=== PATIENT | male | born 1980 | race Caucasian/White ===

== ENCOUNTER 2022-04-26 08:27 | Emergency (ER) | payer BC ==
[~2022-04-26] VITALS: Ht 177.8 cm; Wt 218.2 kg
[2022-04-26 08:38] VITALS: BP 125/86
[2022-04-26] MEDS ORDERED: TETanus/Pertussis (Acell)/Diphther VAC/PF (Tdap-Adult) 0.5ml syringe IMVAC ONE (09:30)
[2022-04-26] MEDS ORDERED: mupirocin 2% ointment 22GM TP ONE (09:30)
[2022-04-26] MEDS ORDERED: LIDOcaine/epinephrine/tetracaine TOPICAL sol 3 ML syringe TOP ONE (09:30)
[2022-04-26] MEDS ORDERED: CEPH-585 PO (10:25)
== END 2022-04-26 11:13 | disposition home or self-care (01) ==
LOC: ER 08:28
DX: S91.111A Laceration without foreign body of right great toe without damage to nail, initial encounter (principal); E10.42 Type 1 diabetes mellitus with diabetic polyneuropathy; Z79.1 Long term (current) use of non-steroidal anti-inflammatories (NSAID); X58.XXXA Exposure to other specified factors, initial encounter; Y93.89 Activity, other specified; Y92.89 Other specified places as the place of occurrence of the external cause; Y99.8 Other external cause status
CPT/HCPCS: 73660; 90471; 90715; 99283; J3490; J7030; L4360

== ENCOUNTER 2022-05-12 13:34 | Inpatient (IN) | payer BC ==
[~2022-05-12] VITALS: Ht 177.8 cm; Wt 84.1 kg
[~2022-05-12 13:34] MED LIST: CEPH-585 PO; HYDR28CR14 TOP; INSU100I8; INSU100V9 SQ; ONDA8TAB9 PO; POTA-82 PO
[2022-05-12] MEDS ORDERED: aspirin 81mg tab.chew PO ONE (13:50)
[2022-05-12 14:04] LABS: BASOPHILS % (AUTO) 0.6 % (0-1); EOSINOPHILS # (AUTO) 0.1 X10'3 (0-0.9); HEMATOCRIT 40.1 % (42.0-52.0); HEMOGLOBIN 13.5 g/dl (14.0-17.9); LYMPHOCYTES # (AUTO) 1.7 X10'3 (1.1-4.8); LYMPHOCYTES % (AUTO) 21.6 % (21-51); MEAN CORPUSCULAR HEMOGLOBIN 30.2 PG (27.0-31.0); MEAN CORPUSCULAR HGB CONC 33.7 g/dL (33.0-36.5); MEAN CORPUSCULAR VOLUME 89.6 FL (78-98); MEAN PLATELET VOLUME 7.7 FL (7.4-10.4); MONOCYTES # (AUTO) 0.5 X10'3 (0-0.9); MONOCYTES % (AUTO) 6.1 % (2-12); NEUTROPHILS # (AUTO) 5.4 X10'3 (1.8-7.7); NEUTROPHILS % (AUTO) 70.7 % (42-75); PLATELET COUNT 269 X10'3 (140-440); RED BLOOD COUNT 4.48 X10'6 (4.70-6.10); RED CELL DISTRIBUTION WIDTH 13.2 % (11.5-14.5); WHITE BLOOD COUNT 7.6 X10'3 (4.5-11.0)
[2022-05-12 14:19] LABS: ALANINE AMINOTRANSFERASE 62 U/L (12-78); ALBUMIN 3.8 G/DL (3.4-5.0); ALKALINE PHOSPHATASE 118 IU/L (46-116); ANION GAP 7 (8-16); ASPARTATE AMINO TRANSFERASE 17 U/L (10-37); BILIRUBIN,TOTAL 0.3 MG/DL (0.1-1.0); BLOOD UREA NITROGEN 15 MG/DL (7-18); BUN/CREATININE RATIO 16.1 (5.4-32.0); CALCIUM 9.3 MG/DL (8.5-10.1); CHLORIDE 98 MMOL/L (99-107); CREATININE 0.93 MG/DL (0.60-1.10); GLUCOSE 438 MG/DL (70-104); POTASSIUM 4.2 MMOL/L (3.5-5.1); SODIUM 134 MMOL/L (135-145); TOTAL CARBON DIOXIDE 28.8 MMOL/L (24-32); TOTAL PROTEIN 7.6 G/DL (6.4-8.2); eGFR 89 ML/MIN
[2022-05-12] MEDS ORDERED: heparin 10,000 units/1 ML INJ IV ONE ×2 (15:10→15:20)
[2022-05-12] MEDS ORDERED: heparin 10,000 units/1 ML INJ IV PRN (15:10)
[2022-05-12] MEDS: heparin 25,000 UNIT/250ml bag 250 ML IV SCH ×2 (15:40→22:12)
[2022-05-12] MEDS ORDERED: MESSAGE TO PHARMACY PO ONE (16:20)
[2022-05-12] MEDS ORDERED: dextrose 50%-water 50ml dispensing syringe IV PRN ×2 (16:20)
[2022-05-12] MEDS ORDERED: nitroGLYCERIN 0.4mg SUBLingual tab SL PRN (16:20)
[2022-05-12] MEDS ORDERED: ondansetron/PF 4mg/2ml inj IV PRN (16:20)
[2022-05-12] MEDS ORDERED: acetaminophen 325mg tablet PO PRN ×2 (16:20)
[2022-05-12] MEDS ORDERED: mag hydrox/Alum hydrox/simeth 30ml oral suspension PO PRN (16:20)
[2022-05-12] MEDS ORDERED: glucagon, human recombinant 1mg kit SUBCUT PRN (16:20)
[2022-05-12] MEDS ORDERED: magnesium hydroxide 30ml (MOM) UD suspension PO PRN (16:20)
[2022-05-12] MEDS ORDERED: morphine 2 MG/ML inj. syringe IV PRN ×2 (16:20)
[2022-05-12] MEDS ORDERED: DEXTROSE 15 GM of carb/4 tabs (each vial/BOTTLE has 4 tablets) PO PRN ×2 (16:20)
[2022-05-12 16:28] LABS: APTT 30 SECONDS (22-32)
--- NOTE | 2022-05-12 16:33 | NUR ---
PAGED DR ESCOBAR TO INFORM THE CRITICAL TROP 162 AND ALSO TO RENEW THE HEPARIN ORDER.
[2022-05-12 17:01] LABS: HEMOGLOBIN A1C 11.5 % (4.5-6.2)
[2022-05-12 17:53] LABS: D-DIMER < 0.19 MG/L FEU (0-0.50)
--- NOTE | 2022-05-12 18:30 | NUR ---
SBAR TO PRIMARY RN ERICK TO PAGE THE HOSPITALIST AGAIN TO RENEW THE ORDERS FOR HEPARIN DRIP .
--- NOTE | 2022-05-12 18:48 | NUR ---
PAGER ID: [phone] MESSAGE: Renato Kapadia, in ER 4 needs cardiac heparin orders to continue from the ED heparin orders. Divya HARMON [id number]
[2022-05-12] MEDS: insulin Lispro (HumaLOG) vial - multi-dose SQ SCH (19:05)
[2022-05-12] MEDS: docusate sod 100mg capsule PO SCH (20:00)
[2022-05-12] MEDS ORDERED: INSU100I8 SQ (20:09)
[2022-05-12] MEDS ORDERED: ROSU10TA28 PO (20:09)
[2022-05-12] MEDS ORDERED: LANTUS SQ (20:09)
[2022-05-12] MEDS: insulin glargine (Lantus) pen - multi-dose SQ SCH (21:00)
[2022-05-12 21:32] LABS: APTT 58 SECONDS (22-32)
[2022-05-13] VITALS (12 sets, daily range): BP systolic 112–157; BP diastolic 62–96
--- NOTE | 2022-05-13 07:00 | NUR ---
PREVIOUS BLUE TOP PTT LAB WASNT CLOTTING PER LAB AND REDRAW NEEDED. PAUSED HEPARIN DRIP AND WILL REDRAW IN 30 MIN
[2022-05-13] MEDS: docusate sod 100mg capsule PO SCH ×2 (08:00→19:42)
[2022-05-13 08:07] LABS: BASOPHILS % (AUTO) 0.8 % (0-1); EOSINOPHILS # (AUTO) 0.1 X10'3 (0-0.9); EOSINOPHILS % (AUTO) 1.9 % (0-6); HEMATOCRIT 41.1 % (42.0-52.0); HEMOGLOBIN 13.6 g/dl (14.0-17.9); LYMPHOCYTES # (AUTO) 1.8 X10'3 (1.1-4.8); MEAN CORPUSCULAR HEMOGLOBIN 29.5 PG (27.0-31.0); MEAN CORPUSCULAR HGB CONC 33.1 g/dL (33.0-36.5); MEAN CORPUSCULAR VOLUME 89.2 FL (78-98); MEAN PLATELET VOLUME 7.7 FL (7.4-10.4); MONOCYTES # (AUTO) 0.4 X10'3 (0-0.9); MONOCYTES % (AUTO) 9.3 % (2-12); NEUTROPHILS # (AUTO) 2.3 X10'3 (1.8-7.7); PLATELET COUNT 272 X10'3 (140-440); RED BLOOD COUNT 4.61 X10'6 (4.70-6.10); RED CELL DISTRIBUTION WIDTH 13.1 % (11.5-14.5); WHITE BLOOD COUNT 4.7 X10'3 (4.5-11.0)
[2022-05-13 08:08] LABS: ALBUMIN 3.1 G/DL (3.4-5.0); ANION GAP 7 (8-16); BLOOD UREA NITROGEN 11 MG/DL (7-18); BUN/CREATININE RATIO 14.7 (5.4-32.0); CALCIUM 8.6 MG/DL (8.5-10.1); CHLORIDE 104 MMOL/L (99-107); CREATININE 0.75 MG/DL (0.60-1.10); GLUCOSE 136 MG/DL (70-104); POTASSIUM 3.4 MMOL/L (3.5-5.1); SODIUM 140 MMOL/L (135-145); TOTAL CARBON DIOXIDE 29.2 MMOL/L (24-32); eGFR > 90 ML/MIN
[2022-05-13] MEDS: aspirin 81mg, enteric-coated 1 TAB TABLET.DR PO SCH (08:18)
[2022-05-13 11:01] LABS: CHOLESTEROL 277 MG/DL (0-200); HDL CHOLESTEROL 70 MG/DL (35-60); LDL CHOLESTEROL 174 MG/DL (50-100); TRIGLYCERIDES 106 MG/DL (20-135)
--- NOTE | 2022-05-13 11:06 | NUR ---
Diabetes consult: Pt w/ hx of T1DM A1c 11.5 per EMR. Pt declined verbal ed at this time, stating he just needs to figure his insulin out (on insulin pump), though accepted written DM ed w/ RD contact info. Addendum: 05/13/22 at [address] Amended: Links added.
[2022-05-13] MEDS ORDERED: nitroGLYCERIN-Tridil 50MG/D5W 250 ML IV ONE (11:52)
[2022-05-13] MEDS ORDERED: verapamil 2.5 mg/ml inj IV ONE (11:52)
[2022-05-13] MEDS ORDERED: LIDOcaine 1% 30ml preserv. free vial ONE (11:53)
[2022-05-13] MEDS ORDERED: midazolam 1 mg/ML 2ml injection ONE (11:53)
[2022-05-13] MEDS ORDERED: fentaNYL/PF 50MCG/1 ML 2ML syringe ONE (11:53)
[2022-05-13] MEDS ORDERED: iohexol 350MG/ML 100ml bottle IV ONE ×3 (11:53→14:24)
--- NOTE | 2022-05-13 13:05 | NUR ---
pt is having an angio today. Has been consented and prepped. laboratory assistant to retrieve pt between 1300 and 1330. Will continue to monitor and keep npo.
[2022-05-13] MEDS ORDERED: ticagrelor 90mg tablet ONE (14:37)
[2022-05-13] MEDS ORDERED: heparin 25,000 UNIT/250ml bag 250 ML IV ONE (14:44)
[2022-05-13] MEDS ORDERED: HYDROcodone/acetaminophen 10/325mg tab PO PRN (15:20)
[2022-05-13] MEDS: HYDROcodone/acetaminophen 5mg/325mg tablet PO PRN (15:45)
[2022-05-13] MEDS: normal saline 1000ml 1,000 ML IV SCH (16:15)
[2022-05-13] MEDS: ticagrelor 90mg tablet PO SCH (19:32)
--- NOTE | 2022-05-13 20:21 | NUR ---
Assumed care of this patient from FAUSTINO Ramos at change of shift 1800. Vascular device in place on right radial, with 3ml pressure released Q 15 min. released completely at aprox. 1845. No signs of bleeding. covered with gauze and clear Tegaderm to continue to monitor. Vitals stable, A&O x $ eating dinner. Care to be assumed by FAUSTINO Younger.
[2022-05-13] MEDS: insulin Lispro (HumaLOG) vial - multi-dose SQ SCH (21:41)
[2022-05-13] MEDS: insulin glargine (Lantus) pen - multi-dose SQ SCH (21:44)
[2022-05-14] VITALS (11 sets, daily range): BP systolic 96–150; BP diastolic 54–87
[2022-05-14] MEDS: normal saline 1000ml 1,000 ML IV SCH ×3 (00:58→18:59)
--- NOTE | 2022-05-14 06:21 | NUR ---
Problems reprioritized. Patient report given, questions answered & plan of care reviewed with SAL. Addendum: 05/14/22 at 0622 by Mark Nagel RN Amended: Links added.
[2022-05-14 07:40] LABS: BASOPHILS % (AUTO) 0.7 % (0-1); EOSINOPHILS # (AUTO) 0.1 X10'3 (0-0.9); EOSINOPHILS % (AUTO) 1.5 % (0-6); HEMOGLOBIN 12.3 g/dl (14.0-17.9); LYMPHOCYTES # (AUTO) 1.7 X10'3 (1.1-4.8); LYMPHOCYTES % (AUTO) 39.8 % (21-51); MEAN CORPUSCULAR HEMOGLOBIN 30.5 PG (27.0-31.0); MEAN CORPUSCULAR HGB CONC 34.1 g/dL (33.0-36.5); MEAN CORPUSCULAR VOLUME 89.3 FL (78-98); MEAN PLATELET VOLUME 7.9 FL (7.4-10.4); MONOCYTES # (AUTO) 0.3 X10'3 (0-0.9); MONOCYTES % (AUTO) 8.3 % (2-12); NEUTROPHILS # (AUTO) 2.1 X10'3 (1.8-7.7); NEUTROPHILS % (AUTO) 49.7 % (42-75); PLATELET COUNT 258 X10'3 (140-440); RED BLOOD COUNT 4.03 X10'6 (4.70-6.10); RED CELL DISTRIBUTION WIDTH 12.9 % (11.5-14.5); WHITE BLOOD COUNT 4.2 X10'3 (4.5-11.0)
[2022-05-14] MEDS ORDERED: aspirin 81mg, enteric-coated 1 TAB TABLET.DR PO SCH (08:00)
[2022-05-14] MEDS ORDERED: atorvastatin 20mg tablet PO SCH (08:00)
[2022-05-14 08:05] LABS: ALBUMIN 2.8 G/DL (3.4-5.0); ANION GAP 7 (8-16); BLOOD UREA NITROGEN 14 MG/DL (7-18); BUN/CREATININE RATIO 17.9 (5.4-32.0); CALCIUM 8.1 MG/DL (8.5-10.1); CHLORIDE 106 MMOL/L (99-107); CHOL/HDL RATIO 3.9 (0.00-4.99); CHOLESTEROL 235 MG/DL (0-200); CREATININE 0.78 MG/DL (0.60-1.10); GLUCOSE 194 MG/DL (70-104); HDL CHOLESTEROL 60 MG/DL (35-60); LDL CHOLESTEROL 146 MG/DL (50-100); POTASSIUM 3.7 MMOL/L (3.5-5.1); SODIUM 139 MMOL/L (135-145); TRIGLYCERIDES 142 MG/DL (20-135); eGFR > 90 ML/MIN
[2022-05-14] MEDS: insulin Lispro (HumaLOG) vial - multi-dose SQ SCH ×2 (08:07→21:50)
[2022-05-14] MEDS: ticagrelor 90mg tablet PO SCH ×2 (08:09→21:28)
[2022-05-14] MEDS: docusate sod 100mg capsule PO SCH ×2 (08:09→20:00)
[2022-05-14] MEDS: atorvastatin 20mg tablet PO SCH (08:09)
[2022-05-14] MEDS: aspirin 81mg, enteric-coated 1 TAB TABLET.DR PO SCH (08:09)
[2022-05-14] MEDS: HYDROcodone/acetaminophen 5mg/325mg tablet PO PRN ×2 (08:21→14:20)
--- NOTE | 2022-05-14 10:20 | NUR ---
Page to respiratory [id number] Darryl. Pt needs to go down to CT today at some point please call Paige @[phone]
[2022-05-14] MEDS ORDERED: nitroGLYCERIN-Tridil 50MG/D5W 250 ML IV ONE (11:42)
[2022-05-14] MEDS ORDERED: fentaNYL/PF 50MCG/1 ML 2ML syringe ONE (11:42)
[2022-05-14] MEDS ORDERED: LIDOcaine 1% (10mg/ml) 2ml vial ONE (11:42)
[2022-05-14] MEDS ORDERED: iohexol 350MG/ML 100ml bottle IV ONE ×2 (11:42→12:36)
[2022-05-14] MEDS ORDERED: midazolam 1 mg/ML 2ml injection ONE (11:42)
[2022-05-14] MEDS ORDERED: heparin 1,000unit/ml 10ml vial 10 ML ONE (11:42)
[2022-05-14] MEDS ORDERED: verapamil 2.5 mg/ml inj IV ONE (11:42)
[2022-05-14] MEDS ORDERED: heparin 1,000 UNITS/NS 500ml 500 ML ONE (11:43)
[2022-05-14] MEDS ORDERED: ticagrelor 90mg tablet ONE (13:18)
--- NOTE | 2022-05-14 13:44 | NUR ---
page to JOHN [id number] Kang back from ammunition assembly laborer Dr. Upton would like EKG. [phone]
[2022-05-14] MEDS ORDERED: ticagrelor 90mg tablet PO STA (13:52)
--- NOTE | 2022-05-14 13:55 | NUR ---
RX, stent cards ,brillinta coupon handed to patient so they are not forgotten on DC.
--- NOTE | 2022-05-14 16:05 | NUR ---
sensation and distal pulses intact post cath on right side. Hand is warm, radial pulse palpable, sensation intact no hematoma at site , no leaking
--- NOTE | 2022-05-14 17:34 | NUR ---
cath site no air in band, no blood leaking, light bruising , no hematoma, sensation intact , pulses bilateral radial and pedal palpable no complications noted at this time
--- NOTE | 2022-05-14 18:16 | NUR ---
Problems reprioritized. Patient report given, questions answered & plan of care reviewed with Charles HARMON. Patient resting in bed in no acute distress.
[2022-05-14] MEDS: insulin glargine (Lantus) pen - multi-dose SQ SCH (21:37)
[2022-05-15] MEDS: normal saline 1000ml 1,000 ML IV SCH ×2 (01:39→08:19)
[2022-05-15 02:00] VITALS: BP 113/77
[2022-05-15 06:53] LABS: BASOPHILS % (AUTO) 0.7 % (0-1); EOSINOPHILS # (AUTO) 0.1 X10'3 (0-0.9); EOSINOPHILS % (AUTO) 1.3 % (0-6); HEMATOCRIT 36.3 % (42.0-52.0); HEMOGLOBIN 12.3 g/dl (14.0-17.9); LYMPHOCYTES # (AUTO) 1.2 X10'3 (1.1-4.8); LYMPHOCYTES % (AUTO) 25.5 % (21-51); MEAN CORPUSCULAR HEMOGLOBIN 30.2 PG (27.0-31.0); MEAN CORPUSCULAR HGB CONC 33.8 g/dL (33.0-36.5); MEAN CORPUSCULAR VOLUME 89.3 FL (78-98); MEAN PLATELET VOLUME 7.7 FL (7.4-10.4); MONOCYTES # (AUTO) 0.5 X10'3 (0-0.9); NEUTROPHILS # (AUTO) 2.9 X10'3 (1.8-7.7); NEUTROPHILS % (AUTO) 62.5 % (42-75); PLATELET COUNT 251 X10'3 (140-440); RED BLOOD COUNT 4.06 X10'6 (4.70-6.10); RED CELL DISTRIBUTION WIDTH 12.9 % (11.5-14.5); WHITE BLOOD COUNT 4.7 X10'3 (4.5-11.0)
--- NOTE | 2022-05-15 06:57 | NUR ---
Patient in room PCU 3011. I have received report from FAUSTINO Soto and had the opportunity to ask questions and assume patient care.
[2022-05-15 07:05] VITALS: BP 106/63
[2022-05-15 07:12] LABS: ALBUMIN 2.9 G/DL (3.4-5.0); ANION GAP 7 (8-16); BLOOD UREA NITROGEN 10 MG/DL (7-18); BUN/CREATININE RATIO 13.7 (5.4-32.0); CALCIUM 8.5 MG/DL (8.5-10.1); CHLORIDE 105 MMOL/L (99-107); CREATININE 0.73 MG/DL (0.60-1.10); GLUCOSE 156 MG/DL (70-104); POTASSIUM 3.8 MMOL/L (3.5-5.1); SODIUM 140 MMOL/L (135-145); TOTAL CARBON DIOXIDE 27.8 MMOL/L (24-32); eGFR > 90 ML/MIN
[2022-05-15] MEDS: atorvastatin 20mg tablet PO SCH (07:53)
[2022-05-15] MEDS: ticagrelor 90mg tablet PO SCH (07:53)
[2022-05-15] MEDS: aspirin 81mg, enteric-coated 1 TAB TABLET.DR PO SCH (07:53)
[2022-05-15] MEDS: docusate sod 100mg capsule PO SCH (07:56)
[2022-05-15] MEDS: insulin Lispro (HumaLOG) vial - multi-dose SQ SCH (09:39)
[2022-05-15] MEDS ORDERED: ASPI-1071 PO (10:15)
[2022-05-15] MEDS ORDERED: ATOR20TA66 PO ×2 (10:15)
[2022-05-15] MEDS ORDERED: CARV3.12 PO ×2 (10:15)
[2022-05-15] MEDS ORDERED: TICA90TA PO (10:15)
[2022-05-15 11:34] VITALS: BP 130/86
[2022-05-15] MEDS ORDERED: METO-539 PO (12:24)
[2022-05-15] MEDS ORDERED: ROSU40TA PO (12:24)
[2022-05-15] MEDS ORDERED: LISI10TA27 PO (12:24)
--- NOTE | 2022-05-15 12:26 | NUR ---
Patient alert and oriented in no apparent acute distress. Spouse at bedside and brought in Brilinta that was picked up from Pharmacy. Discussed with patient discharge instruction and new prescriptions. Both patient and spouse verbalized understanding of teaching. Patient preferred to ambulate with spouse for dc. Patient dc'd with all personal belongings.
== END 2022-05-15 12:39 | disposition home or self-care (01) | DRG 247 ==
LOC: ER 13:35 → ED HOLD 16:21 → OBSVTOIN 16:21 → EDBEDREQ 05-13 01:24 → PCU 3S 05-13 10:30
PROVIDERS: ADMIT Internal Medicine; ATTEND Internal Medicine
PROC: 4A023N7 Measurement of Cardiac Sampling and Pressure, Left Heart, Percutaneous Approach (ICD-10-PCS; principal; 2022-05-13)
PROC: 027034Z Dilation of Coronary Artery, One Artery with Drug-eluting Intraluminal Device, Percutaneous Approach (ICD-10-PCS; 2022-05-13)
PROC: B2111ZZ Fluoroscopy of Multiple Coronary Arteries using Low Osmolar Contrast (ICD-10-PCS; 2022-05-13)
PROC: B2151ZZ Fluoroscopy of Left Heart using Low Osmolar Contrast (ICD-10-PCS; 2022-05-13)
PROC: 027135Z Dilation of Coronary Artery, Two Arteries with Two Drug-eluting Intraluminal Devices, Percutaneous Approach (ICD-10-PCS; 2022-05-14)
PROC: 4A023N7 Measurement of Cardiac Sampling and Pressure, Left Heart, Percutaneous Approach (ICD-10-PCS; 2022-05-14)
PROC: B2111ZZ Fluoroscopy of Multiple Coronary Arteries using Low Osmolar Contrast (ICD-10-PCS; 2022-05-14)
PROC: B2151ZZ Fluoroscopy of Left Heart using Low Osmolar Contrast (ICD-10-PCS; 2022-05-14)
DX: I21.4 Non-ST elevation (NSTEMI) myocardial infarction (principal); E10.65 Type 1 diabetes mellitus with hyperglycemia; I10 Essential (primary) hypertension; Z96.41 Presence of insulin pump (external) (internal); E78.5 Hyperlipidemia, unspecified; Z79.4 Long term (current) use of insulin; Z83.3 Family history of diabetes mellitus; Z82.49 Family history of ischemic heart disease and other diseases of the circulatory system; Z79.899 Other long term (current) drug therapy
CPT/HCPCS: 93452; 93458; 99285; C9600; 36415; 71045; 76937; 80048; 80053; 80061; 82948; 83036; 83880; 84484; 85025; 85347; 85379; 85610; 85730; 93005; 99152; 99153; A4620; A5120; A6258; C1725; C1751; C1769; C1874; C1894; G0378; J1644; J1815; J2250; J3010; J3490; J7030; Q9967

== ENCOUNTER 2022-05-28 12:43 | Outpatient (CLI) | payer BC ==
[~2022-05-28 12:43] MED LIST changes: +ASPI-1071 PO; -CEPH-585 PO; -HYDR28CR14 TOP; -INSU100I8; +INSU100I8 SQ; -INSU100V9 SQ; +LANTUS SQ; +LISI10TA27 PO; +METO-539 PO; -ONDA8TAB9 PO; -POTA-82 PO; +ROSU40TA PO; +TICA90TA PO
== END 2022-05-28 23:59 | disposition home or self-care (01) ==
LOC: VAS 12:43
PROVIDERS: ATTEND Internal Medicine Cardiovascular Disease
DX: I65.23 Occlusion and stenosis of bilateral carotid arteries (principal); I25.10 Atherosclerotic heart disease of native coronary artery without angina pectoris; R42 Dizziness and giddiness
CPT/HCPCS: 93880; 93925

== ENCOUNTER 2022-07-27 13:02 | Emergency (ER) | payer BC ==
[~2022-07-27] VITALS: Ht 177.8 cm; Wt 84.0 kg
[~2022-07-27 13:02] MED LIST changes: +BENZ-38 PO; +GUAI120L55 PO; -METO-539 PO
[2022-07-27 13:13] VITALS: BP 111/78
[2022-07-27] MEDS ORDERED: AMOX-117 PO (13:54)
[2022-07-27] MEDS ORDERED: DOXY100C76 PO (13:54)
== END 2022-07-27 14:06 | disposition home or self-care (01) ==
LOC: ER 13:02
DX: E10.65 Type 1 diabetes mellitus with hyperglycemia (principal); J20.9 Acute bronchitis, unspecified; R05.9 Cough, unspecified
CPT/HCPCS: 71045; 99283

== ENCOUNTER 2022-09-13 07:59 | Observation (INO) | payer BC ==
[~2022-09-13] VITALS: Ht 177.8 cm; Wt 76.2 kg
[~2022-09-13 07:59] MED LIST changes: -BENZ-38 PO
[2022-09-13 08:35] LABS: BASOPHILS % (AUTO) 0.8 % (0-1); EOSINOPHILS # (AUTO) 0.1 X10'3 (0-0.9); EOSINOPHILS % (AUTO) 1.1 % (0-6); HEMATOCRIT 38.7 % (42.0-52.0); HEMOGLOBIN 12.9 g/dl (14.0-17.9); LYMPHOCYTES # (AUTO) 1.9 X10'3 (1.1-4.8); LYMPHOCYTES % (AUTO) 39.5 % (21-51); MEAN CORPUSCULAR HEMOGLOBIN 29.9 PG (27.0-31.0); MEAN CORPUSCULAR HGB CONC 33.5 g/dL (33.0-36.5); MEAN CORPUSCULAR VOLUME 89.4 FL (78-98); MEAN PLATELET VOLUME 7.6 FL (7.4-10.4); MONOCYTES # (AUTO) 0.5 X10'3 (0-0.9); MONOCYTES % (AUTO) 9.6 % (2-12); NEUTROPHILS # (AUTO) 2.3 X10'3 (1.8-7.7); PLATELET COUNT 375 X10'3 (140-440); RED BLOOD COUNT 4.32 X10'6 (4.70-6.10); RED CELL DISTRIBUTION WIDTH 13.7 % (11.5-14.5); WHITE BLOOD COUNT 4.7 X10'3 (4.5-11.0)
[2022-09-13 08:50] LABS: ALANINE AMINOTRANSFERASE 101 U/L (12-78); ALBUMIN/GLOBULIN RATIO 1.1 (1.1-1.5); ALKALINE PHOSPHATASE 136 IU/L (46-116); ANION GAP 5 (8-16); ASPARTATE AMINO TRANSFERASE 64 U/L (10-37); BILIRUBIN,TOTAL 0.4 MG/DL (0.1-1.0); BLOOD UREA NITROGEN 23 MG/DL (7-18); BUN/CREATININE RATIO 20.4 (5.4-32.0); CALCIUM 9.5 MG/DL (8.5-10.1); CHLORIDE 96 MMOL/L (99-107); CREATININE 1.13 MG/DL (0.60-1.10); GLUCOSE 312 MG/DL (70-104); POTASSIUM 5.3 MMOL/L (3.5-5.1); SODIUM 132 MMOL/L (135-145); TOTAL CARBON DIOXIDE 31.5 MMOL/L (24-32); TOTAL PROTEIN 7.8 G/DL (6.4-8.2); eGFR 71 ML/MIN
[2022-09-13 08:58] LABS: MAGNESIUM 2.2 MG/DL (1.5-2.4)
[2022-09-13] MEDS ORDERED: normal saline 1000ML IV soln IVB ONE (09:10)
[2022-09-13] MEDS: normal saline 1000ml 1,000 ML IV SCH ×2 (12:25→22:40)
[2022-09-13] MEDS ORDERED: mag hydrox/Alum hydrox/simeth 30ml oral suspension PO PRN (12:25)
[2022-09-13] MEDS ORDERED: regadenoson 0.4mg/5ml syringe IV PRN (12:25)
[2022-09-13] MEDS ORDERED: aminophylline 250mg/10ml inj. IV PRN (12:25)
[2022-09-13] MEDS ORDERED: metoprolol tartrate 1mg/ml inj IV PRN (12:25)
[2022-09-13] MEDS ORDERED: acetaminophen 325mg tablet PO PRN (12:25)
[2022-09-13] MEDS ORDERED: magnesium hydroxide 30ml (MOM) UD suspension PO PRN (12:25)
[2022-09-13] MEDS ORDERED: ondansetron/PF 4mg/2ml inj IV PRN (12:25)
[2022-09-13] MEDS ORDERED: nitroGLYCERIN 0.4mg SUBLingual tab SL PRN (12:25)
[2022-09-13] MEDS ORDERED: LISI10TA27 PO (13:57)
[2022-09-13] MEDS ORDERED: TICA90TA2 PO (13:57)
[2022-09-13] MEDS ORDERED: ASPI81TA52 PO (13:57)
[2022-09-13] MEDS ORDERED: METO-395 PO (13:57)
[2022-09-13] MEDS ORDERED: MULT-1085 PO (13:57)
[2022-09-13] MEDS ORDERED: ROSU40TA22 PO (13:57)
[2022-09-13] MEDS ORDERED: dextrose 50%-water 50ml dispensing syringe IV PRN ×2 (17:50)
[2022-09-13] MEDS ORDERED: glucagon, human recombinant 1mg kit SUBCUT PRN (17:50)
[2022-09-13] MEDS ORDERED: insulin Lispro (HumaLOG) vial - multi-dose SQ SCH (17:50)
[2022-09-13] MEDS ORDERED: DEXTROSE 15 GM of carb/4 tabs (each vial/BOTTLE has 4 tablets) PO PRN ×2 (17:50)
[2022-09-13] MEDS ORDERED: MESSAGE TO PHARMACY PO ONE (17:50)
[2022-09-13 18:09] LABS: HEMOGLOBIN A1C 11.2 % (4.5-6.2)
[2022-09-13] MEDS: docusate sod 100mg capsule PO SCH (20:00)
[2022-09-13] MEDS ORDERED: metoprolol succinate 25mg (24-HOUR) SR. Tablet PO SCH (21:00)
[2022-09-13] MEDS ORDERED: insulin glargine (Lantus) pen - multi-dose SQ SCH (21:00)
[2022-09-13] MEDS ORDERED: atorvastatin 20mg tablet PO SCH (21:00)
[2022-09-13] MEDS: ticagrelor 90mg tablet PO SCH (21:05)
--- NOTE | 2022-09-13 21:23 | NUR ---
Report called to [facility] who kindly accepts report at this time. patient cleared for transport to [facility].
[2022-09-13 22:21] VITALS: BP 128/82
[2022-09-14] VITALS (9 sets, daily range): BP systolic 96–139; BP diastolic 59–77
[2022-09-14 06:45] LABS: BASOPHILS % (AUTO) 0.9 % (0-1); EOSINOPHILS # (AUTO) 0.1 X10'3 (0-0.9); EOSINOPHILS % (AUTO) 1.6 % (0-6); HEMATOCRIT 34.6 % (42.0-52.0); HEMOGLOBIN 11.6 g/dl (14.0-17.9); LYMPHOCYTES # (AUTO) 1.9 X10'3 (1.1-4.8); LYMPHOCYTES % (AUTO) 39.9 % (21-51); MEAN CORPUSCULAR HGB CONC 33.6 g/dL (33.0-36.5); MEAN CORPUSCULAR VOLUME 89.3 FL (78-98); MEAN PLATELET VOLUME 7.6 FL (7.4-10.4); MONOCYTES # (AUTO) 0.5 X10'3 (0-0.9); MONOCYTES % (AUTO) 10.9 % (2-12); NEUTROPHILS # (AUTO) 2.3 X10'3 (1.8-7.7); NEUTROPHILS % (AUTO) 46.7 % (42-75); PLATELET COUNT 301 X10'3 (140-440); RED BLOOD COUNT 3.88 X10'6 (4.70-6.10); RED CELL DISTRIBUTION WIDTH 13.5 % (11.5-14.5); WHITE BLOOD COUNT 4.8 X10'3 (4.5-11.0)
[2022-09-14 06:59] LABS: ANION GAP 4 (8-16); BLOOD UREA NITROGEN 20 MG/DL (7-18); BUN/CREATININE RATIO 21.7 (5.4-32.0); CALCIUM 8.6 MG/DL (8.5-10.1); CHLORIDE 102 MMOL/L (99-107); CREATININE 0.92 MG/DL (0.60-1.10); GLUCOSE 197 MG/DL (70-104); POTASSIUM 4.1 MMOL/L (3.5-5.1); SODIUM 134 MMOL/L (135-145); TOTAL CARBON DIOXIDE 28.2 MMOL/L (24-32); eGFR 90 ML/MIN
[2022-09-14] MEDS: ticagrelor 90mg tablet PO SCH (07:29)
[2022-09-14] MEDS: docusate sod 100mg capsule PO SCH (07:34)
--- NOTE | 2022-09-14 07:35 | NUR ---
LN spoke with re: bp @115 sys, pt scheduled for RADHA @ 3066, stated to hold lisinopril r/t procedure.
[2022-09-14] MEDS ORDERED: multivitamins, therapeutics tablet PO SCH (08:00)
[2022-09-14] MEDS ORDERED: enoxaparin 40mg/0.4ml syringe SUBCUT SCH (08:00)
[2022-09-14] MEDS ORDERED: aspirin 81mg, enteric-coated 1 TAB TABLET.DR PO SCH (08:00)
[2022-09-14] MEDS ORDERED: lisinopril 10 MG tablet PO SCH (08:00)
[2022-09-14] MEDS: normal saline 1000ml 1,000 ML IV SCH (08:25)
[2022-09-14 12:09] LABS: CHOL/HDL RATIO 2.8 (0.00-4.99); CHOLESTEROL 177 MG/DL (0-200); HDL CHOLESTEROL 63 MG/DL (35-60); LDL CHOLESTEROL 87 MG/DL (50-100); TRIGLYCERIDES 151 MG/DL (20-135)
--- NOTE | 2022-09-14 12:16 | NUR ---
Per EMR pt with T1DM, poorly controlled with A1c 11.2% however this does appear to be stable with A1c hx per EMR: 11.4% 01/18/18, 10.7% 12/19/20, and 11.5% 05/12/22. Multiple attempted visits with pt at bedside for DM education however pt unavailable. Will attempt education at another time. Pt last received DM education by STEFFANIE 05/13/22 per EMR. Will continue to follow. Addendum: 09/14/22 at [address] Amended: Links added.
[2022-09-14 12:39] LABS: D-DIMER < 0.19 MG/L FEU (0-0.50)
--- NOTE | 2022-09-14 12:54 | NUR ---
Page sent to @ 1926 - Pt 3039, Noah Kapadia, RADHA scan negative, D dimer <0.19. May we discharge? Thanks, Josette Laughlin LVN II @2091.
--- NOTE | 2022-09-14 14:50 | NUR ---
Pt stable, d/c'd home as per MD order. Pt took all belongings and signed paperwork. PIV d/c'd, cannula intact. Pt safely transferred to vehicle at main entrance.
== END 2022-09-14 14:48 | disposition home or self-care (01) ==
LOC: ER 07:59 → ED HOLD 12:25 → PCU 3S 22:00
PROVIDERS: ADMIT Family Medicine; ATTEND Family Medicine
DX: R07.89 Other chest pain (principal); I25.10 Atherosclerotic heart disease of native coronary artery without angina pectoris; E11.9 Type 2 diabetes mellitus without complications; I10 Essential (primary) hypertension; E78.5 Hyperlipidemia, unspecified; I25.2 Old myocardial infarction; K21.9 Gastro-esophageal reflux disease without esophagitis; Z95.1 Presence of aortocoronary bypass graft; Z95.5 Presence of coronary angioplasty implant and graft; Z79.899 Other long term (current) drug therapy
CPT/HCPCS: 36415; 71045; 78452; 80048; 80053; 80061; 82948; 83036; 83735; 83880; 84484; 85025; 85379; 87081; 93005; 93017; 96360; 96361; 96372; 99285; A9500; G0378; J1650; J1815; J2785; J7030

== ENCOUNTER 2022-12-26 11:39 | Emergency (ER) | payer BC ==
[~2022-12-26] VITALS: Ht 177.8 cm; Wt 84.1 kg
[~2022-12-26 11:39] MED LIST changes: -ASPI-1071 PO; +ASPI81TA52 PO; -GUAI120L55 PO; +METO-395 PO; +MULT-1085 PO; -ROSU40TA PO; +ROSU40TA22 PO; -TICA90TA PO; +TICA90TA2 PO
[2022-12-26 12:05] VITALS: BP 106/77
[2022-12-26] MEDS ORDERED: HYDROcodone/acetaminophen 10/325mg tab PO ONE (12:15)
[2022-12-26] MEDS ORDERED: DICL100G30 TOP ×3 (12:21→15:13)
[2022-12-26] MEDS ORDERED: HYDR-3972 PO ×3 (12:21→15:13)
== END 2022-12-26 12:50 | disposition home or self-care (01) ==
LOC: ER 11:40
DX: M77.41 Metatarsalgia, right foot (principal); E11.9 Type 2 diabetes mellitus without complications
CPT/HCPCS: 73630; 99283

== ENCOUNTER 2023-09-03 19:40 | Emergency (ER) | payer BC ==
[~2023-09-03] VITALS: Ht 177.8 cm; Wt 85.0 kg
[~2023-09-03 19:40] MED LIST changes: +DICL100G59 TOP; +HYDR-3972 PO
[2023-09-03 19:50] VITALS: BP 170/100; PULSE 100; RESP 18; TEMP 98.2; O2SAT 100
[2023-09-03 21:42] LABS: BASOPHILS % (AUTO) 0.8 % (0-1); EOSINOPHILS # (AUTO) 0.3 X10'3 (0-0.9); EOSINOPHILS % (AUTO) 4.8 % (0-6); HEMATOCRIT 38.9 % (42.0-52.0); HEMOGLOBIN 13.4 g/dl (14.0-17.9); LYMPHOCYTES # (AUTO) 1.7 X10'3 (1.1-4.8); LYMPHOCYTES % (AUTO) 31.9 % (21-51); MEAN CORPUSCULAR HEMOGLOBIN 30.4 PG (27.0-31.0); MEAN CORPUSCULAR HGB CONC 34.5 g/dL (33.0-36.5); MEAN CORPUSCULAR VOLUME 88.3 FL (78-98); MEAN PLATELET VOLUME 7.9 FL (7.4-10.4); MONOCYTES # (AUTO) 0.6 X10'3 (0-0.9); MONOCYTES % (AUTO) 10.4 % (2-12); NEUTROPHILS # (AUTO) 2.8 X10'3 (1.8-7.7); NEUTROPHILS % (AUTO) 52.1 % (42-75); PLATELET COUNT 337 X10'3 (140-440); RED BLOOD COUNT 4.41 X10'6 (4.70-6.10); RED CELL DISTRIBUTION WIDTH 13.3 % (11.5-14.5); WHITE BLOOD COUNT 5.4 X10'3 (4.5-11.0)
[2023-09-03 22:18] LABS: ALANINE AMINOTRANSFERASE 48 U/L (12-78); ALBUMIN 3.6 G/DL (3.4-5.0); ALKALINE PHOSPHATASE 109 IU/L (46-116); ANION GAP 10 (8-16); ASPARTATE AMINO TRANSFERASE 21 U/L (10-37); BILIRUBIN,TOTAL 0.4 MG/DL (0.1-1.0); BLOOD UREA NITROGEN 23 MG/DL (7-18); BUN/CREATININE RATIO 22.3 (10.0-20.0); CALCIUM 9.1 MG/DL (8.5-10.1); CHLORIDE 98 MMOL/L (99-107); CREATININE 1.03 MG/DL (0.60-1.10); GLUCOSE 296 MG/DL (70-104); MAGNESIUM 2.1 MG/DL (1.5-2.4); POTASSIUM 4.1 MMOL/L (3.5-5.1); SODIUM 136 MMOL/L (135-145); TOTAL CARBON DIOXIDE 28.2 MMOL/L (24-32); TOTAL PROTEIN 7.2 G/DL (6.4-8.2); eCRCL 95 ML/MIN; eGFR 78 ML/MIN
[2023-09-03] MEDS ORDERED: CefTRIAXone 1000mg IM Kit (w/lidocaine diluent) IM ONE (22:45)
[2023-09-03] MEDS ORDERED: SKIN30CL4 TOP (22:51)
[2023-09-03] MEDS ORDERED: CEPH-585 PO (22:51)
== END 2023-09-04 00:59 | disposition home or self-care (01) ==
LOC: ER 19:40
DX: L23.7 Allergic contact dermatitis due to plants, except food (principal); I11.0 Hypertensive heart disease with heart failure; Z79.899 Other long term (current) drug therapy
CPT/HCPCS: 36415; 71045; 80053; 83605; 83735; 84145; 85025; 87040; 96372; 99284; J0696

== ENCOUNTER 2024-01-15 17:49 | Emergency (ER) | payer BC ==
[~2024-01-15] VITALS: Ht 177.8 cm; Wt 62.8 kg
[~2024-01-15 17:49] MED LIST changes: +SKIN30CL4 TOP
[2024-01-15 18:13] VITALS: BP 158/94; PULSE 91; RESP 16; TEMP 98.6; O2SAT 98
[2024-01-15] MEDS: CefTRIAXone 1000mg IM Kit (w/lidocaine diluent) IM ONE (19:29)
[2024-01-15] MEDS ORDERED: CLIN300C54 PO (19:54)
== END 2024-01-15 19:58 | disposition home or self-care (01) ==
LOC: ER 17:49
DX: L03.032 Cellulitis of left toe (principal); M79.675 Pain in left toe(s); M79.89 Other specified soft tissue disorders; E10.9 Type 1 diabetes mellitus without complications; Z79.82 Long term (current) use of aspirin; Z79.1 Long term (current) use of non-steroidal anti-inflammatories (NSAID); Z79.84 Long term (current) use of oral hypoglycemic drugs; Z79.899 Other long term (current) drug therapy
CPT/HCPCS: 73630; 96372; 99283; J0696

== ENCOUNTER 2025-08-08 10:24 | Inpatient (IN) | payer BC, MEDICAID ==
[~2025-08-08] VITALS: Ht 180.3 cm; Wt 72.1 kg
[~2025-08-08 10:24] MED LIST changes: -ROSU40TA22 PO; +ROSU40TA89 PO
--- NOTE | 2025-08-08 10:40 | ELECTROCARDIOGRAPH REPORT ---
[facility] Test Date: 2025-08-08 Test Time: 10:29:41 Pat Name: CHENG COWART Department: EMERGENCY ROOM Room: Gender: M Field Marketing Associate: PM : 1980 Requested By: MARLEY HENDRIX Order Number: [id number] Reading MD: Dr. Marley Hendrix Measurements Intervals [place] Rate: 122 P: 54 MS: 143 QRS: 73 QRSD: 92 T: -18 QT: 322 QTc: 459 Interpretive Statements Sinus tachycardia Ventricular premature complex Probable left atrial enlargement Probable left ventricular hypertrophy Borderline T abnormalities, inferior leads Electronically Signed On 08-08-2025 11:16:[address] Marley Hendrix Please click the below link to view image of tracing.
[2025-08-08 11:11] LABS: MEAN PLATELET VOLUME 8.2 FL (7.4-10.4); RED CELL DISTRIBUTION WIDTH 13.4 % (11.5-14.5)
[2025-08-08] MEDS: ondansetron/PF 4mg/2ml inj IV ONE (11:13)
[2025-08-08] MEDS: normal saline 1000ml 1,000 ML IV ONE (11:13)
--- NOTE | 2025-08-08 11:20 | RADIOLOGY REPORT ---
CLINICAL HISTORY: CP TECHNIQUE: Single view of the chest was obtained. COMPARISON: DI CHEST,SINGLE VIEW on DOS: 09/03/23, CHEST,SINGLE VIEW on DOS: 09/13/22, CHEST,SINGLE VIEW on DOS: 07/27/22, CHEST,SINGLE VIEW on DOS: 07/08/22, CHEST,SINGLE VIEW on DOS: 05/12/22 FINDINGS: The heart size and pulmonary vasculature are normal. The lungs are clear. IMPRESSION: NO ACUTE CARDIOPULMONARY PROCESS.
[2025-08-08 11:22] LABS: LEUKOCYTE ESTERASE ,URINE NEGATIVE (Neg); NITRITES, URINE NEGATIVE (Neg); OCCULT BLOOD,URINE TRACE-INTACT (Neg)
[2025-08-08 11:32] LABS: UA COLLECTION TYPE CLN CATCH MIDSTREAM
[2025-08-08] MEDS: morphine 4 MG/ML inj SYRINge IV ONE (11:32)
[2025-08-08 11:34] LABS: SQUAMOUS EPITHELIAL CELL,UR FEW /LPF (FEW)
[2025-08-08 11:35] LABS: FINE GRANULAR CAST 0-3 /LPF (NEGATIVE)
[2025-08-08 11:39] LABS: CREATININE 1.75 MG/DL (0.60-1.10); PRO BRAIN NATRIURETIC PEPTIDE 73 PG/ML (0-125); eCRCL 54 ML/MIN; eGFR 42 ML/MIN
[2025-08-08 11:43] LABS: TOTAL CARBON DIOXIDE 7.4 MMOL/L (24-32)
--- NOTE | 2025-08-08 11:52 | Physician Documentation ---
History of Present Illness ~ Chief Complaint: Chest Pain Stated Complaint: CP Time Seen by MD: 11:51 OK to notify your PCP?: Yes Primary Medical Doctor: Faisal Source: patient, RN/, RN notes reviewed, old records Mode of Arrival: POV, Ambulatory Exam Limitations: no limitations HPI 45-year-old male reports to the ER for symptoms of chest pain/diarrhea with a PMH of diabetes, CAD, four stents. His symptoms started yesterday around 3:34 p.m. where he felt nauseous and dehydrated, started throwing up at 5:00 p.m. all yesterday. He has been off of blood thinners for a year. He has also not been taking Plavix. Medication Reconciliation Allergies: Coded Allergies: No Known Allergies (Unverified , 08/08/25) Scheduled Aspirin (Aspirin EC), 1 TAB PO DAILY, (Reported) Diclofenac Sodium (Diclofenac Sodium), 2 GM TOP Q6H Hydrocodone Bit/Acetaminophen (Hydrocodon-Acetaminophn 10-325 tablet), 1 TAB PO TID PRN Insulin Glargine,Hum.rec.anlog* (Lantus*), 24 UNITS SQ HS, (Reported) Lisinopril (Lisinopril), 1 TAB PO DAILY, (Reported) Metoprolol Succinate (Metoprolol Succinate), 1 TAB PO HS, (Reported) Metoprolol Tartrate (Lopressor), Unknown Dose PO ONCE, (Reported) Multivitamin (Multi Vitamin Daily), 1 TAB PO DAILY, (Reported) Rosuvastatin Calcium (Rosuvastatin Calcium), 1 TAB PO HS, (Reported) Ticagrelor (Brilinta), 1 TAB PO BID, (Reported) Scheduled PRN Insulin Lispro (Humalog), 0 SQ TIDWM PRN for PER SLIDING SCALE, (Reported) Skin Cleanser Combination No.8 (Zanfel), 5 ML TOP PRN PRN for itching Past Medical History Past Medical History: Coronary Artery Disease, Myocardial Infarction, Diabetes Past Surgical History: coronary bypass surgery Other Past Family History: Patient has family history of heart disease on mom and dad's side. Alcohol Use: Occasionally Drug Use: none Lives In: Home Occupation: employed Review of Systems ROS As stated above in the HPI, otherwise all systems are reviewed and negative. Physical Exam Vital Signs: Temperature: 97.5, Source: Oral, Heart Rate: 127, Respiratory Rate: 17, BP: 169/88, Pulse Oximetry: 100, Weight: 72.100 Oxygen Flow Rate: 0 Physical Exam General: The patient is well developed, well nourished, toxic appearing and is in moderate distress. Uncomfortable. Skin: [place], warm and dry with no rashes. HEENT: Head was normocephalic and atraumatic. Eyes - pupils equal, round, reactive to light and accommodation. Extraocular movements were intact. Conjunctivae were nonicteric. The mouth was moist, dry mucous membranes. There were no pharyngeal exudates or erythema. Neck: Supple and nontender. There was no jugular venous distention, lymphadenopathy, thyromegaly or masses. Chest: Clear to auscultation bilaterally without wheezes, rales or rhonchi. No accessory muscle use. No dullness to percussion. Heart: Rapid heart rate. Four vessel stent S1, S2. No murmurs. Palpation of the chest wall was normal. No rubs or thrills. Abdomen: Soft, nontender and nondistended. Positive bowel sounds. No guarding or rebound. No hepatosplenomegaly or palpable masses. Extremities: No cyanosis, clubbing or edema. The patient moves all extremities. Pulses were equal and symmetric. Neurologic: Motor systems are grossly intact. Psychologic: The patient was oriented to person, place and time. The patient demonstrated appropriate judgement and insight. Progress Results/Orders Results/Orders Vital Signs 08/08/25 08/08/25 08/08/25 08/08/25 10:31 11:01 11:42 12:03 Temp 96.7 97.5 97.8 Pulse 120 127 125 Resp 18 14 17 16 B/P (MAP) 144/77 169/88 (115) 139/61 (87) Pulse Ox 99 100 100 O2 Flow Rate 0 0 0 Laboratory Tests Test 08/08/25 10:37 08/08/25 11:00 08/08/25 11:09 08/08/25 11:10 Glucometer 403 *H White Blood Count 13.8 H Red Blood Count 4.37 L Hemoglobin 13.4 L Hematocrit 42.8 Mean Corpuscular Volume 97.9 Mean Corpuscular Hemoglobin 30.7 Mean Corpuscular Hemoglobin Concent 31.4 L Red Cell Distribution Width 13.4 Platelet Count 367 Mean Platelet Volume 8.2 Neutrophils (%) (Auto) 79.8 H Lymphocytes (%) (Auto) 16.4 L Monocytes (%) (Auto) 3.4 Eosinophils (%) (Auto) 0.1 Basophils (%) (Auto) 0.3 Neutrophils # (Auto) 11.0 H Lymphocytes # (Auto) 2.3 Monocytes # (Auto) 0.5 Eosinophils # (Auto) 0.0 Basophils # (Auto) 0.0 CBC Comment Prothrombin Time 9.7 INR International Normalized Ratio 0.9 Activated Partial Thromboplast Time 27 Coagulation Comments Sodium Level 133 L Potassium Level 4.8 Chloride Level 96 L Carbon Dioxide Level 7.4 *L Anion Gap 30 H Blood Urea Nitrogen 32 H Creatinine 1.75 H Estimated GFR/1.73 m2 42 BUN/Creatinine Ratio 18.3 Glucose Level 440 *H Lactic Acid Level 3.1 H Calcium Level 9.5 Total Bilirubin 0.5 Aspartate Amino Transf (AST/SGOT) 28 Alanine Aminotransferase (ALT/SGPT) 69 Alkaline Phosphatase 149 H Troponin I High Sensitivity < 4 L Troponin I High Sens Percent Delta Troponin I Hi Sens Absolute Change Pro-B-Type Natriuretic Peptide 73 Total Protein 8.2 Albumin 3.8 Globulin 4.4 H Albumin/Globulin Ratio 0.9 L Lipase 17 Chemistry Comments Urine Specimen Description Cln catch midstream Urine Color Yellow Urine Clarity Clear Urine pH 5.5 Urine Specific [place] >=1.030 Urine Protein 30 H Urine Glucose (UA) 500 H Urine Ketones >=80 Urine Occult Blood Trace-intact Urine Nitrite Negative Urine Bilirubin Negative Urine Urobilinogen 0.2 Urine Leukocyte Esterase Negative Urine RBC 0-2 Urine WBC 0-4 Urine Squamous Epithelial Cells Few Urine Transitional Epithelial Cells Few Urine Bacteria None seen Urine Fine Granular Casts 0-3 Urine Culture Indicated Not ind Volume Urine Centrifuged 10 ml Urine Comment Urine Opiates Screen Negative Urine Methadone Screen Negative Urine Fentanyl Screen Negative Urine Barbiturates Screen Negative Urine Phencyclidine Screen Negative Urine Amphetamines Screen Negative Urine Benzodiazepines Screen Negative Urine Cocaine Screen Negative Urine Cannabinoids Screen Negative Drug Screen Comment Test 08/08/25 12:16 08/08/25 12:25 08/08/25 12:46 Glucometer 397 H Venous Blood pH 6.957 *L Phosphorus Level 4.9 H Magnesium Level 2.0 Total Creatine Kinase 70 Troponin I High Sensitivity 5 Procalcitonin 0.39 Ethyl Alcohol Level < 10 EKG/XRAY/CT/US/VASC/MRI EKG : Intepreting Monitor?: [place] - [id number] ELECTROCARDIOGRAM Patient: CHENG COWART Medical Record: [id number] [facility] : 1980, Age: 45Sex: M Location: ER Patient Status: [facility] ER Service Date/Time: Ordering Physician: MARLEY GASPAR MD Exam Name: ELECTROCARDIOGRAM Technologist: [facility] Test Date: 2025-08-08 Test Time: 10:29:41 Pat Name: CHENG COWART Department: EMERGENCY ROOM Room: Gender: M Aromatherapist: : 1980 Requested By: MARLEY GASPAR Order Number: [id number] Reading MD: Dr. Marley Gaspar Measurements Intervals [place] Rate: 122 P: 54 [place]: 143 QRS: 73 QRSD: 92 T: -18 QT: 322 QTc: 459 Interpretive Statements Sinus tachycardia Ventricular premature complex Probable left atrial enlargement Probable left ventricular hypertrophy Borderline T abnormalities, inferior leads Electronically Signed On 08-08-2025 11:16:[address] Marley Gaspar Please click the below link to view image of tracing. EKG Date and Time:08/08/25 1029 Electronically Signed by: MARLEY GASPAR MD Date and Time: 08/08/25 1116 NO PRIMARY CARE PROVIDER~ cc: ~ Chest X-Ray : Interpreted By: radiologist Views: 1 VIEW Additional Comments DIAGNOSTIC RADIOLOGY Patient: CHENG COWART Medical Record: [id number] [facility] : 1980, Age: 45 Sex: Male Location: ER Patient Status: [facility] ER Service Date/Time: 08/08/25/ 1039 Ordering Physician: MARLEY GASPAR MD Exam: CHEST,SINGLE VIEW CLINICAL HISTORY: CP TECHNIQUE: Single view of the chest was obtained. COMPARISON: DI CHEST,SINGLE VIEW on DOS: 09/03/23, CHEST,SINGLE VIEW on DOS: 09/13/22, CHEST,SINGLE VIEW on DOS: 07/27/22, CHEST,SINGLE VIEW on DOS: 07/08/22, CHEST,SINGLE VIEW on DOS: 05/12/22 FINDINGS: The heart size and pulmonary vasculature are normal. The lungs are clear. IMPRESSION: NO ACUTE CARDIOPULMONARY PROCESS. Electronically Signed by:TRISTAN MATTHEW MD Date & Time: 08/08/251116 Dictated by: TRISTAN MATTHEW MD Dictation date and time: 08/08/251116 Primary Care Provider: NO PRIMARY CARE PROVIDER cc: MARLEY GASPAR MD ~ Departure Disposition: 09 ADMITTED INPATIENT Impression: Primary Impression: DTK Additional Impressions: Acute renal failure Chest pain Condition: Guarded Discharge Instructions: Nonspecific Chest Pain, Adult, Chest Wall Pain Referrals: NO PRIMARY CARE PROVIDER (PCP) Education Educated: Patient Educated regarding: diagnosis Signature Scribe Signature: Scribed for Marley Gaspar MD by Tish Soliz . 08/08/25 12:03 Attestation: The note accurately reflects work and decisions made by me.Marley Gaspar MD 08/08/25 11:52 MARLEY GASPAR MD Aug 08, 2025 11:52 TISH GASPAR Aug 08, 2025 12:03
[2025-08-08] MEDS ORDERED: enoxaparin 100mg/ml syringe SUBCUT ONE (12:00)
[2025-08-08] MEDS: Insulin Reg/NS 100units/100mL 100 ML IV PRN (12:20)
[2025-08-08] MEDS: enoxaparin 30mg/0.3ml syringe SUBCUT ONE (12:24)
[2025-08-08] MEDS: enoxaparin 40mg/0.4ml syringe SQ ONE (12:25)
[2025-08-08] MEDS: normal saline 1000ML IV soln IVB ONE (12:34)
[2025-08-08] MEDS: ringers solution, lacted 1,000 ML IV SCH ×2 (12:45→12:49)
[2025-08-08] MEDS ORDERED: potassium Cl 40MEQ/270ML bag 270 ML IV PRN (12:45)
[2025-08-08] MEDS ORDERED: dextrose 50%-water 50ml dispensing syringe IV PRN (12:45)
[2025-08-08] MEDS ORDERED: sodium phosphate inj. 30 MMOL in dextrose 5%-water 250 ML IV PRN (12:45)
[2025-08-08] MEDS ORDERED: sodium phos 15mmol/D5 255mL 255 ML IV PRN (12:45)
[2025-08-08] MEDS ORDERED: magnesium sulf-water 4G/100mL 100 ML IV PRN (13:05)
[2025-08-08] MEDS ORDERED: magnesium Cl slow-release 64mg tablet PO PRN (13:05)
[2025-08-08] MEDS ORDERED: bisacodyl 10mg suppository rectal RC PRN (13:05)
[2025-08-08] MEDS ORDERED: HYDROcodone/acetaminophen 10/325mg tab PO PRN (13:05)
[2025-08-08] MEDS ORDERED: mag hydrox/Alum hydrox/simeth 30ml oral suspension PO PRN (13:05)
[2025-08-08] MEDS ORDERED: ondansetron 4mg rapidly disintigrating tab PO PRN (13:05)
[2025-08-08] MEDS ORDERED: ondansetron/PF 4mg/2ml inj IV PRN (13:05)
[2025-08-08] MEDS: potassium Cl 20mEq in NS 1,000 ML IV SCH (13:05)
[2025-08-08] MEDS ORDERED: potassium Cl 40MEQ/1/2NS 520ml 520 ML IV PRN (13:05)
[2025-08-08] MEDS ORDERED: potassium Cl 20 mEq SR tablet PO PRN ×2 (13:05)
[2025-08-08] MEDS ORDERED: magnesium sulf-water 2g/50mL 50 ML IV PRN (13:05)
[2025-08-08] MEDS ORDERED: acetaminophen 650mg rectal suppository RC PRN (13:05)
[2025-08-08] MEDS ORDERED: magnesium hydroxide 30ml (MOM) UD suspension PO PRN (13:05)
[2025-08-08] MEDS: sodium bicarbonate (8.4%) inj. 100 MEQ in dextrose 5%-water 1,000 ML IV SCH (13:20)
[2025-08-08] MEDS: potassium Cl 40MEQ/1/2NS 520ml 520 ML IV PRN (13:22)
--- NOTE | 2025-08-08 13:23 | HISTORY AND PHYSICAL ---
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 Trevino, on home aspirin and Brilinta, history of hypertension, CHF ejection fraction 67% 2022, dyslipidemia, history of alcoholism sober now, presented today to emergency department from home chief complaint nonbloody diarrhea associated with nausea vomiting and chest pain; in addition patient reports to the ER for symptoms of chest pain/diarrhea with a PMH of diabetes, CAD, four stents. His symptoms started yesterday around 3:34 p.m. where he felt nauseous and dehydrated, started throwing up at 5:00 p.m. all yesterday. He has been off of blood thinners for a year. He has also not been taking Plavix. Emergency department patient was evaluated by physician was diagnosed with DKA chest pain acute renal failure, started on insulin infusion, and decision was made to admit patient for further evaluation and treatment, no additional complaint or concern. Allergies: Coded Allergies: No Known Allergies (Unverified , 08/08/25) Active prescriptions I reviewed reconciled Home Medications Home Medications Active Zanfel (Skin Cleanser Combination No.8) 30 Gm Cleanser 5 Ml TOP PRN PRN Diclofenac Sodium 100 Gm Gel..gram. 2 Gm TOP Q6H 21 Days Hydrocodon-Acetaminophn 10-325 tablet (Acetaminophen/Hydrocodone Bitart) 10mg- 325mg Tablet 1 Tab PO TID PRN 5 Days Reported Aspirin EC (Aspirin) 81 Mg Tablet.dr 1 Tab PO DAILY 30 Days Lisinopril 10 Mg Tablet 1 Tab PO DAILY 30 Days Multi Vitamin Daily (Multivitamin) 1 Each Tablet 1 Tab PO DAILY 30 Days Rosuvastatin Calcium 40 Mg Tablet 1 Tab PO HS Metoprolol Succinate 25 Mg Tab.sr.24h 1 Tab PO HS Brilinta (Ticagrelor) 90 Mg Tablet 1 Tab PO BID Lantus* (Insulin Glargine) 100 Unit/1 Ml Vial 24 Units SQ HS Humalog (Insulin Lispro) 100 Unit/1 Ml Insuln.pen 0 SQ TIDWM PRN Past Medical History Past Medical History As in HPI Past Surgical History Surgical History Comment As in HPI Past Social History Social History Comment Denies illicit drug use, or Use tobacco alcohol use live with the family good social support Health Maintenance Health Maintenance Noncontributory ROS ROS I review of systems Constitutional : no fever , no chills, or weakness. No diaphoresis. Allergic/Immunologic, no lymphadenopathy, no hives, no skin eruptions. Eyes, no recent visual changes, no eye pain, no photophobia. Ears, nose, mouth, throat, no sore throat, no nosebleed, no ear pain. Cardiovascular, no palpitations, skipped beats, positive for chest pain, no peripheral edema, Respiratory, no dyspnea, orthopnea, cough, hemoptysis, chest wall pain. Gastrointestinal, no abdominal pain, patient has nausea, vomiting, nonbloody diarrhea. : no dysuria, hematuria, pelvic pain, urethral d/c. Endocrine, no polyuria, polydipsia, recent unintentional weight gain or loss. Hematologic/Lymphatic, no petechiae, no enlarged lymph nodes, no bone pain. Integumentary, no rash, no skin lesions, Musculoskeletal, no muscle aches, or pain, no muscle cramps, no recent change in gait Neurological, no dizziness, no headache, no syncope, no paresthesia. Psychiatric, no delusions, visual hallucinations, or hearing hallucinations. ROS - in rest is as in HPI. Exam Vitals: Vital Signs Date Time Temp Pulse Resp B/P (MAP) Pulse Ox O2 Delivery O2 Flow Rate FiO2 08/08/25 12:03 97.8 125 16 139/61 (87) 100 0 Vital signs, stable ,afebrile. Tachycardic, Pulse Oximetry reflects adequate oxygenation. BMI is 22, weight 72 kg General: well developed, well nourished. Awake , alert, and oriented x4, resting comfortably in the bed, in acute distress secondary to nausea vomiting Skin: Warm, dry, no pallor, no rash or petechiae. HEENT: Atraumatic, normocephalic, EOMI, anicteric sclera B; pink conjunctiva; PERRLA, normal oropharynx, moist oral and nasal mucosa. Tympanic membrane , nose , throat clear. Neck: Trachea midline. Supple, full range of motion, no JVD, bruit , hepatojugular reflex , lymphadenopathy or masses, or other lesions Cardiac: Regular rhythm, regular rate no murmurs, rubs, or gallops. Normal S1 and S2, no S3 noticed. PMI is normal. Respiratory: Equal breath sounds bilaterally, no tachypnea; lungs clear to auscultation bilaterally, no wheezing ,rub or rales, or crackles. Chest wall is symmetric and without deformity. No signs of trauma. Chest wall is nontender. No signs of respiratory distress. Resonance is normal upon percussion bilaterally. Gastrointestinal: Abdomen symmetric, non-distended, soft, non-tender, normal bowel sounds x4 quadrant, normoactive, no hepatosplenomegaly , no masses , no bruit, no flank pain bilaterally. No voluntary guarding, rebound, or rigidity. No tenderness to percussion. No pulsatile masses. Equal femoral pulses. No Escamilla's sign or McBurney point tenderness. Back; no CVA tenderness bilaterally, no deformities. Neck and back are without deformity as well. No tenderness noted on palpation of the spinous processes. Spinous processes are midline. Cervical, thoracic, and lumbar paraspinal muscles are not tender and are without spasm. : normal external genitalia, without lesions, swelling, masses or tenderness. Musculoskeletal: Extremities, normal range of motion, non-tender, muscle strength 5/5 x 4. Negative Homans signs bilaterally on lower extremity. Distal pulses full symmetrical, no clubbing, cyanosis , edema. Neurological: Speech is clear, alert, and oriented x 4. No motor or sensory deficit, deep tendon reflexes normal, cerebellar intact. Cranial nerves II-XII intact. Psych: Alert and or appropriate, normal affect. Vascular: Good distal pulses, which are equal x4; capillary refill less than 2 seconds. Lymphatic, no lymphadenopathy. Diagnostic Data Last Recorded Lab Results: 08/08/25 1100 08/08/25 1100 Diagnostic Data: Laboratory Tests Test 08/08/25 11:00 Coagulation Comments Advance Care Planning Advanced Care plannin - 30 Minutes Additional Plan Assessment Diabetes mellitus type 1 uncontrolled DKA Noncompliance with treatment Tachyarrhythmia Precordial chest pain, secondary to above Acute renal failure GFR 42 Acute gastro enterocolitis, diarrhea nonbloody Hypovolemia associated with ketonuria Hyponatremia Chronic pain syndrome on home opioids History of coronary artery disease CT status post CABG and four stents placement on aspirin Brilinta to home Chronic CHF ejection fraction 67% 2022 Additional comorbidities hypertension, dyslipidemia, history of alcohol use sober now chronic kidney disease Plan Started on IV insulin infusion IV fluids, keep patient well hydrated IV bicarb Correct electrolytes IV Protonix Antiemetics Additional lab work pending Patient logging worker is Dr. Trevino Serial Troponin EKG PT evaluation and treatment Reconciled home medications DVT gastropathy prophylaxis addressed 15:30, ICU Consulted, recommended continue IV fluids up to 6 L totally then maintenance fluids at 200 mL/hour, recommendations we will be implemented. Sepsis Screening Reassessment Date: Aug 08, 2025 Date of Service: Aug 08, 2025 Billing Provider: CHAYO CARRANZA MD Common Visit Codes: 77985-[id number] INP/OBS CARE (HIGH) Secondary Visit Codes: [id number] CARE PLAN 30 MINUTES CHAYO CARRANZA MD Aug 08, 2025 13:23
[2025-08-08] MEDS: metoclopramide 5 mg/ml inj IV PRN (13:31)
[2025-08-08 13:32] LABS: APTT 27 SECONDS (22-32); INR 0.9 INR
[2025-08-08 13:34] LABS: ETHANOL < 10 MG/DL (<10); PHOSPHORUS 4.9 MG/DL (2.3-4.5)
[2025-08-08 13:41] LABS: URINE AMPHETAMINE SCREEN NEGATIVE (Neg); URINE BARBITUATE SCREEN NEGATIVE (Neg); URINE BENZODIAZEPINES SCREEN NEGATIVE (Neg); URINE CANNABINOID SCREEN NEGATIVE (Neg); URINE COCAINE SCREEN NEGATIVE (Neg); URINE METHADONE SCREEN NEGATIVE (Neg); URINE OPIATE SCREEN NEGATIVE (Neg); URINE PHENCYCLIDINE SCREEN NEGATIVE (Neg)
--- NOTE | 2025-08-08 13:48 | ELECTROCARDIOGRAPH REPORT ---
[facility] Test Date: 2025-08-08 Test Time: 13:46:10 Pat Name: CHENG COWART Department: EMERGENCY ROOM Room: ED 6 Gender: M Housekeeping Aid: JORGE ALBERTO : 1980 Requested By: MARLEY HENDRIX Order Number: [id number] Reading MD: Dr. Marley Hendrix Measurements Intervals [place] Rate: 144 P: 49 [place]: 120 QRS: 61 QRSD: 96 T: -74 QT: 282 QTc: 437 Interpretive Statements Sinus tachycardia Probable anteroseptal infarct, recent Electronically Signed On 08-08-2025 15:13:[address] Marley Hendrix Please click the below link to view image of tracing.
[2025-08-08] MEDS: metoprolol tartrate 1mg/ml inj IV SCH (14:45)
[2025-08-08 15:08] LABS: ABG BASE EXCESS -22.8 mmol/L (-2.0-3.0); ABG HCO3 6.0 mmol/L (21.0-28.0); ABG OXYGEN SATURATION 96.5 % (94.0-98.0); ABG PCO2 (T) 21.7 mmHg (35.0-48.0); ABG PH (T) 7.056 (7.350-7.450); ABG PO2 (T) 101.2 mmHg (83.0-108.0); ALLEN'S TEST POSITIVE; FCOHb 0.3 % (0.5-1.5); FHHb 3.5 % (0.0-5.0); FIO2 21.0 mmHg/%; FMetHb 0.2 % (0.0-1.5); FO2Hb 96.0 % (94.0-98.0); MODE ROOM AIR; PATIENT TEMPERATURE 37.0; TOTAL HEMOGLOBIN 12.4 G/dl (13.5-17.5)
[2025-08-08 15:19] LABS: MEAN PLATELET VOLUME 7.8 FL (7.4-10.4); RED CELL DISTRIBUTION WIDTH 12.8 % (11.5-14.5)
[2025-08-08 15:41] LABS: CREATININE 1.44 MG/DL (0.60-1.10); PHOSPHORUS 4.3 MG/DL (2.3-4.5); eCRCL 65 ML/MIN; eGFR 53 ML/MIN
--- NOTE | 2025-08-08 15:51 | CONSULTATION REPORT - RESIDENT ---
Consult Providers to CC Resident Creating Document: SERGEY REYNAGA RES History of Present Illness Reason for Admit\Complaint: severe metabolic acidosis T1DM History of Present Illness A 45 M with PMH of non-compliance T1DM on Insulin, CAD, s/p CABG, Hypertension, Hyperlipidemia, Substance use disorder (EtOH), and chronic pain syndrome presented to the ER for the chest pain and SOB/ dehydrated with Nausea and vomiting started with the diarrhea on last Friday while he was losing his insurance to be compliance with the insulin injection. The patient was admitted to the PCU floor under hospitalist care, and ICU team was requested for the potential Intensive care for severe metabolic acidosis. In ER, pt was given IV 3L fluid and was given IV Metoprolol for his sinus tachycardia for his narrow complex tachycardia. his vitals were stable at the moment with HR around 110s and BP 120/60 mmHg, alert orientated and not confused. Upon his labs, VBG was only ordered showing pH of 6.9, and Low serum carbon dioxide with the widen ANG. UA showed Ketone bodies and glucose in the urine with no signs of infections. Allergies: Coded Allergies: No Known Allergies (Unverified , 08/08/25) Home Medications Home Medications Active Zanfel (Skin Cleanser Combination No.8) 30 Gm Cleanser 5 Ml TOP PRN PRN Diclofenac Sodium 100 Gm Gel..gram. 2 Gm TOP Q6H 21 Days Hydrocodon-Acetaminophn 10-325 tablet (Acetaminophen/Hydrocodone Bitart) 10mg- 325mg Tablet 1 Tab PO TID PRN 5 Days Reported Aspirin EC (Aspirin) 81 Mg Tablet.dr 1 Tab PO DAILY 30 Days Lisinopril 10 Mg Tablet 1 Tab PO DAILY 30 Days Multi Vitamin Daily (Multivitamin) 1 Each Tablet 1 Tab PO DAILY 30 Days Rosuvastatin Calcium 40 Mg Tablet 1 Tab PO HS Metoprolol Succinate 25 Mg Tab.sr.24h 1 Tab PO HS Brilinta (Ticagrelor) 90 Mg Tablet 1 Tab PO BID Lantus* (Insulin Glargine) 100 Unit/1 Ml Vial 24 Units SQ HS Humalog (Insulin Lispro) 100 Unit/1 Ml Insuln.pen 0 SQ TIDWM PRN Past Medical History Past Medical History non-compliance T1DM on Insulin, CAD, s/p CABG, Hypertension, Hyperlipidemia, Substance use disorder (EtOH), and chronic pain syndrome Past Surgical History Surgical History Comment S/p CABG for NH Past Social History Social History Comment substance use disorder (EtOH) ROS ROS ROS were reviewed as the above mentioned in HPI Exam Vitals: Vital Signs Date Time Temp Pulse Resp B/P (MAP) Pulse Ox O2 Delivery O2 Flow Rate FiO2 08/08/25 15:35 144 08/08/25 15:20 97.7 16 119/63 (81) 100 0 General: General: Well alert, well oriented, not confused, not agitated, not in acute distress, well cooperated during the physical. HEENT: HEENT: Conjunctive are pink, sclerae clear, no icterus, pupil is equal in both sides, reactive to light, no ear discharge, no pharyngeal erythema or an edema, mouth and lips are dry. Neck: Neck: Supple, no JVD, no lymphadenopathy and thyromegaly. 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: No focal neurological deficits, no motor and sensory weakness in all 4 extremities, could move all 4 extremities Musculoskeletal: Musculoskeletal: No joint swelling, deformities, inflammations, and no scoliosis and back tenderness Skin: Skin: No active skin lesions and rashes Diagnostic Data Last Recorded Lab Results: 08/08/25 1508 08/08/25 1508 Diagnostic Data: Laboratory Tests Test 08/08/25 11:00 Prothrombin Time 9.7 SECONDS (9.0-12.0) INR International Normalized Ratio 0.9 INR Activated Partial Thromboplast Time 27 SECONDS (22-32) Coagulation Comments Additional Plan A 45 M with PMH of non-compliance T1DM on Insulin, CAD, s/p CABG, Hypertension, Hyperlipidemia, Substance use disorder (EtOH), and chronic pain syndrome presented to the ER for the chest pain and SOB/ dehydrated with Nausea and vomiting started with the diarrhea on last Friday while he was losing his insurance to be compliance with the insulin injection. The patient was admitted to the PCU floor under hospitalist care, and ICU team was requested for the potential Intensive care for severe metabolic acidosis. # possible DKA, to rule out other causes of Metabolic Acidosis # hx of non-complaince T1DM on insulin # Metabolic acidosis with compensating respiratory alkalosis -Recommended to check ABG with Serum Beta Hydroxybutyrate -to exclude out the other causes of metabolic acidosis -advised to continue IV bolus fluid up to 4-6 L f/by maintenance IV with 200- 250cc/hr for dehydration from diarrhea -to initiate DKA protocol with Insulin therapy, to consider IV bicarb only for serum bicarb <6 to reduce mortality -DM education for complaince and nutritional education and to avoid exacerbation # Neutrophil leucocytosis # Normochromic normocytic anemia -Cleared CXR -no UTI in UA -ordered procalcitonin -vitals stable -Possibly from hemoconcentration from diarrhea -chronically stable NNA, consider for the iron study or other GI blood loss # JUAQUIN mostly pre renal from dehydration 2/2 diarrhea # CKD stage 3, 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 You are welcomed to discuss questions related to patient care, and we are signed off the patient care for now. Resident MD attestation: Patient was seen, examined and discussed with PulmCrit attending MD, Dr. Yossi REYANGA MD Internal Medicine Resident, PGY3 [facility] Date of Service: Aug 08, 2025 Billing Provider: BRENT ELIAS MD, TIN, RES Aug 08, 2025 15:51
[2025-08-08 16:03] LABS: TOTAL CARBON DIOXIDE 8.1 MMOL/L (24-32)
[2025-08-08 17:43] VITALS: BP 126/64; PULSE 109; RESP 16; TEMP 98.9; O2SAT 97
[2025-08-08 17:55] LABS: MEAN PLATELET VOLUME 8.0 FL (7.4-10.4); RED CELL DISTRIBUTION WIDTH 13.0 % (11.5-14.5)
[2025-08-08 18:00] VITALS: BP 126/64; PULSE 121; RESP 15; TEMP 98.1; O2SAT 94
[2025-08-08 18:18] LABS: CREATININE 1.43 MG/DL (0.60-1.10); eCRCL 66 ML/MIN; eGFR 53 ML/MIN
[2025-08-08 18:21] LABS: TOTAL CARBON DIOXIDE 10.6 MMOL/L (24-32)
[2025-08-08 19:41] LABS: CREATININE 1.49 MG/DL (0.60-1.10); TOTAL CARBON DIOXIDE 17.7 MMOL/L (24-32); eCRCL 63 ML/MIN; eGFR 51 ML/MIN
[2025-08-08 20:00] VITALS: RESP 16; O2SAT 97
[2025-08-08] MEDS: heparin, porcine 5000 units/ml vial SQ SCH (20:00)
[2025-08-08] MEDS: docusate sod 100mg capsule PO SCH (20:00)
[2025-08-08] MEDS: K and/or MAG REPLACEMENT MC SCH (20:00)
[2025-08-08 22:00] VITALS: BP 135/71; PULSE 115; RESP 17; TEMP 100.3; O2SAT 100
[2025-08-08 23:24] LABS: MEAN PLATELET VOLUME 7.6 FL (7.4-10.4); RED CELL DISTRIBUTION WIDTH 12.8 % (11.5-14.5)
[2025-08-08 23:40] LABS: CREATININE 1.29 MG/DL (0.60-1.10); TOTAL CARBON DIOXIDE 18.8 MMOL/L (24-32); eCRCL 73 ML/MIN; eGFR 60 ML/MIN
[2025-08-09] VITALS (7 sets, daily range): BP systolic 117–150; BP diastolic 57–86; PULSE 67–111; RESP 15–19; TEMP 97.3–98.5; O2SAT 92–100
[2025-08-09 03:41] LABS: MEAN PLATELET VOLUME 7.3 FL (7.4-10.4); RED CELL DISTRIBUTION WIDTH 12.6 % (11.5-14.5)
[2025-08-09 03:57] LABS: CREATININE 1.25 MG/DL (0.60-1.10); TOTAL CARBON DIOXIDE 24.4 MMOL/L (24-32); eCRCL 75 ML/MIN; eGFR 62 ML/MIN
[2025-08-09 04:41] LABS: PHOSPHORUS 1.7 MG/DL (2.3-4.5)
[2025-08-09] MEDS ORDERED: dextrose 50%-water 50ml dispensing syringe IV PRN ×2 (05:05)
[2025-08-09] MEDS ORDERED: glucagon, human recombinant 1mg kit SUBCUT PRN (05:05)
[2025-08-09] MEDS ORDERED: DEXTROSE 15 GM of carb/4 tabs (each vial/BOTTLE has 4 tablets) PO PRN ×2 (05:05)
[2025-08-09] MEDS: magnesium sulf-water 2g/50mL 50 ML IV PRN (05:10)
[2025-08-09] MEDS: INSULIN LISPRO 100 UNIT/ML INSULN.PEN MULTI-DOSE SQ SCH ×4 (07:00→16:53)
[2025-08-09] MEDS ORDERED: METO-467 PO (07:12)
[2025-08-09] MEDS: pantoprazole 40mg Tablet.DR PO SCH (07:17)
[2025-08-09 07:20] LABS: CREATININE 1.17 MG/DL (0.60-1.10); PHOSPHORUS 1.8 MG/DL (2.3-4.5); TOTAL CARBON DIOXIDE 24.2 MMOL/L (24-32); eCRCL 80 ML/MIN; eGFR 67 ML/MIN
[2025-08-09] MEDS: insulin glargine (Lantus) pen - multi-dose SQ SCH ×2 (08:00→22:04)
[2025-08-09] MEDS ORDERED: mag hydrox/Alum hydrox/simeth 30ml oral suspension PO PRN (08:05)
[2025-08-09] MEDS: metoprolol succinate 25mg (24-HOUR) SR. Tablet PO SCH (09:32)
[2025-08-09] MEDS: HYDROcodone/acetaminophen 5mg/325mg tablet PO PRN (09:41)
[2025-08-09] MEDS: insulin glargine (Lantus) pen - multi-dose SQ ONE (10:51)
[2025-08-09] MEDS: ringers solution, lacted 1,000 ML IV SCH (11:06)
[2025-08-09 11:41] LABS: CHOL/HDL RATIO 2.8 (0.00-4.99); LDL CHOLESTEROL 105 MG/DL (50-100)
[2025-08-09] MEDS ORDERED: INSULIN LISPRO 100 UNIT/ML INSULN.PEN MULTI-DOSE SQ SCH (12:00)
[2025-08-09 12:03] LABS: CREATININE 1.15 MG/DL (0.60-1.10); PHOSPHORUS 2.6 MG/DL (2.3-4.5); TOTAL CARBON DIOXIDE 20.3 MMOL/L (24-32); eCRCL 82 ML/MIN; eGFR 68 ML/MIN
[2025-08-09] MEDS: thiamine 100mg/ml 2ml inj. IV SCH (12:27)
[2025-08-09 15:36] LABS: CREATININE 1.08 MG/DL (0.60-1.10); PHOSPHORUS 2.3 MG/DL (2.3-4.5); TOTAL CARBON DIOXIDE 23.1 MMOL/L (24-32); eCRCL 87 ML/MIN; eGFR 74 ML/MIN
--- NOTE | 2025-08-09 16:21 | PROGRESS NOTE- Residence ---
Progress Note - Resident Providers to CC Resident Creating Document: STEPHEN ADRIAN RES ~ Antibiotic Timeout Antibiotic Ordered?: No Subjective Patient seen and examined today. Comfortably resting in bed. States that his nausea, vomiting and diarrhea resolved. His last bowel movement was yesterday morning and it was formed stool. States that he feels better. Has not been taking his insulin and Plavix properly for the last few days due to some insurance change. Had three coronary artery stents about three years back and one stent about two years back. Takes Plavix at home. Has an upcoming appointment with Dr. Upton in August. He has a CGM. Objective Vital Signs Date Time Temp Pulse Resp B/P (MAP) Pulse Ox O2 Delivery O2 Flow Rate FiO2 08/09/25 11:00 97.3 94 15 117/57 (77) 98 Room Air 08/09/25 08:00 0.0 Result Diagram: 08/09/25 0330 08/09/25 1500 General: Alert and oriented x 4 HEENT: Normocephalic and atraumatic. Pupils equal round and reactive to light and accommodation. Extraocular movements intact. Oral and nasal mucosa moist Neck: Trachea is in midline. No masses or JVD Lungs: Bilateral normal breath sounds. No crackles, rhonchi or wheezes Heart: Regular rate and rhythm. S1-S2 normal. No rubs or murmurs Abdomen: Soft, nontender and nondistended. Bowel sounds present [place] OF ESTATE: No gross sensory or motor abnormalities Extremities: No cyanosis, clubbing or edema Skin: Warm and dry Coagulation Studies Laboratory Tests Test 08/08/25 11:00 Prothrombin Time 9.7 SECONDS (9.0-12.0) INR International Normalized Ratio 0.9 INR Activated Partial Thromboplast Time 27 SECONDS (22-32) Coagulation Comments Assessment Assessment The 45-year-old male with Diabetes mellitus type 1 (diagnosed at the age of [age] years), coronary artery disease-s/p for coronary artery stenting, hyperlipidemia presented to the ER with a chief concern of nausea, vomiting and diarrhea. Diarrhea resolved. Is admitted for the treatment of DKA. Plan Plan Severe diabetic ketoacidosis Diabetes mellitus type 1 Mild hyponatremia At the time of admission, venous blood gas pH 6.9 and bicarb was 7.4 Was started on DKA protocol-also received bicarb drip Insulin drip discontinued earlier today and was started on sliding scale and Lantus 14 units Bicarbonate improved and anion gap closed His glucose came down to 120 despite being on D10 Held Lantus 14 units and gave him lispro 4 units Scheduled lispro 4 units q.6h. Also required an additional dose of 5 units and 3 units of lispro Received 10 units Lantus when the glucose went up to 220 along with the lispro Lantus 10 units b.i.d. scheduled Will adjust lispro dosage in a.m. after calculating the total requirement for 24 hours Takes 24 units of Lantus at home in a.m. and 10-12 units of lispro 3 times a day HbA1c 5.8 Replacing potassium, magnesium and phosphorus as per protocol On 75 g carb controlled diet and is tolerating well Continue Ringer's lactate at 100 cc/hour Drinks couple of beers 4 times a week. Last alcohol was Friday night. Not having any alcohol withdrawal symptoms Ethyl alcohol level not elevated Received thiamine 100 mg IV once Target blood glucose level: 150-200 mg/dL Coronary artery disease-s/p for coronary artery stents Continue home medication Plavix 75 mg p.o. daily, metoprolol succinate 75 mg p.o. daily and Lipitor 80 mg p.o. daily (rosuvastatin 40 mg daily) as per external med history Hypertension As per external med history, takes lisinopril 10 mg p.o. daily Now, systolic blood pressure between 110-130 mmHg Hold blood pressure medication for now Normocytic normochromic anemia HGB 10.7 Iron studies, vitamin B12 and folate level ordered DVT prophylaxis: Heparin 5000 units subcutaneous q.12h Stephen Adrian MD Internal Medicine Resident, PGY 3 Date of Service: Aug 09, 2025 Billing Provider: NAY ESPAÑA MD Common Visit Codes: [id number] INP/OBS CARE(HIGH) STEPHEN ADRIAN RES Aug 09, 2025 16:21 NAY ESPAÑA MD Aug 09, 2025 17:30
[2025-08-09 20:27] LABS: % IRON SATURATION 14 % (11-46)
[2025-08-09 20:31] LABS: CREATININE 1.17 MG/DL (0.60-1.10); PHOSPHORUS 2.2 MG/DL (2.3-4.5); TOTAL CARBON DIOXIDE 26.0 MMOL/L (24-32); eCRCL 80 ML/MIN; eGFR 67 ML/MIN
[2025-08-09 23:14] LABS: ABG BASE EXCESS -2.6 mmol/L (-2.0-3.0); ABG HCO3 22.1 mmol/L (21.0-28.0); ABG OXYGEN SATURATION 96.5 % (94.0-98.0); ABG PCO2 (T) 38.5 mmHg (35.0-48.0); ABG PH (T) 7.378 (7.350-7.450); ABG PO2 (T) 79.5 mmHg (83.0-108.0); ALLEN'S TEST POSITIVE; FCOHb 0.3 % (0.5-1.5); FHHb 3.5 % (0.0-5.0); FIO2 21.0 mmHg/%; FMetHb 0.3 % (0.0-1.5); FO2Hb 95.9 % (94.0-98.0); MODE ROOM AIR; PATIENT TEMPERATURE 37.2; TOTAL HEMOGLOBIN 10.6 G/dl (13.5-17.5)
[2025-08-10 02:00] VITALS: BP 105/61; PULSE 85; RESP 16; TEMP 96.8; O2SAT 96
[2025-08-10 06:45] LABS: MEAN PLATELET VOLUME 7.5 FL (7.4-10.4); RED CELL DISTRIBUTION WIDTH 12.4 % (11.5-14.5)
[2025-08-10 06:47] LABS: INR 0.9 INR
[2025-08-10 07:00] VITALS: BP 131/78; PULSE 90; RESP 16; TEMP 97.7; O2SAT 98
[2025-08-10 07:29] LABS: CREATININE 0.88 MG/DL (0.60-1.10); PHOSPHORUS 2.8 MG/DL (2.3-4.5); TOTAL CARBON DIOXIDE 26.2 MMOL/L (24-32); eCRCL 107 ML/MIN; eGFR > 90 ML/MIN
[2025-08-10] MEDS ORDERED: folic acid 1mg/0.2ml inj IV SCH (08:00)
[2025-08-10] MEDS ORDERED: multivitamins, therapeutics tablet PO SCH (08:00)
[2025-08-10 08:30] VITALS: RESP 16; O2SAT 98
[2025-08-10 11:04] VITALS: BP 117/67; PULSE 82; RESP 17; TEMP 97.8; O2SAT 92
[2025-08-10] MEDS ORDERED: LANTUS SQ (13:28)
[2025-08-10] MEDS ORDERED: ROSU40TA89 PO (13:28)
[2025-08-10] MEDS ORDERED: METO-395 PO (13:28)
--- NOTE | 2025-08-12 18:35 | DISCHARGE SUMMARY-Residence ---
Discharge Summary Providers to CC Resident Creating Document: STEPHEN ADRIAN RES ~ Discharge Summary Admission Diagnosis: DKA DM1 CP Hospital Course DATE OF ADMISSION: 08/08/25 DATE OF DISCHARGE: 08/10/25 The 45-year-old with a past medical history of diabetes mellitus type 1, coronary artery disease - s/P coronary artery stents presented to the ER with a chief concern of nausea, vomiting and abdominal pain. He was found to be in DKA. And DKA protocol started. He likely had acute viral gastroenteritis leading to nausea and vomiting which led to DKA. He also could not administer his insulin due to the nausea and vomiting. His A1c is 5.8 and so is likely compliant with the insulin. But, he denies taking Plavix as he could not get a refill due to his insurance issues. Mentioned that he has an appointment with Dr. Upton coming soon. He received insulin drip and fluids as per the DKA protocol and his metabolic acidosis improved and anion gap closed. He did not have any vomiting or diarrhea during his hospital stay. He gradually was able to tolerate food. Stated that he takes 22-24 units of Lantus at night and 10-12 units of lispro wi th meal. He required similar amount of insulin during his hospital stay after DKA resolved. Today, he is stable for discharge. General: Alert and oriented x 4 HEENT: Normocephalic and atraumatic. Pupils equal round and reactive to light and accommodation. Extraocular movements intact. Oral and nasal mucosa moist Neck: Trachea is in midline. No masses or JVD Lungs: Bilateral normal breath sounds. No crackles, rhonchi or wheezes Heart: Regular rate and rhythm. S1-S2 normal. No rubs or murmurs Abdomen: Soft, nontender and nondistended. 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 Continue to take your regular insulin dosage-insulin Lantus 24 units once daily and 10-12 units lispro with a meal. Please take only 10-12 units of Lantus tonight as he already received 10 units of Lantus this morning. Please follow with your PCP within one week after discharge. Please follow up with the manager relationship within 1-2 weeks after discharge. Strongly recommend against drinking alcohol Stephen Adrian MD Internal Medicine Resident, PGY 3 Discharge Diagnosis\Comment: Severe diabetic ketoacidosis Diabetes mellitus type 1 Mild hyponatremia Coronary artery disease-SP coronary artery stents Hypertension Normocytic normochromic anemia Operations\Procedures: None Consultants: Dr. Sy - dance choreographer Complications: None Condition on DC: Stable Changed Medications: Metoprolol Succinate (Metoprolol Succinate) 25 Mg Tab.sr.24h 2 TAB PO HS for 30 Days, #60 TAB.SR (Changed from: 1 TAB) Continued Medications: Diclofenac Sodium (Diclofenac Sodium) 100 Gm Gel..gram. 2 GM TOP Q6H for 21 Days, #100 GM 0 Refills Hydrocodone Bit/Acetaminophen (Hydrocodon-Acetaminophn 10-325 tablet) 10mg- 325mg Tablet 1 TAB PO TID PRN for 5 Days, #15 TAB Insulin Glargine,Hum.rec.anlog* (Lantus*) 100 Unit/1 Ml Vial 24 UNITS SQ HS for 30 Days, #1 VIAL (This prescription has been renewed) Insulin Lispro (Humalog) 100 Unit/1 Ml Insuln.pen 0 SQ TIDWM PRN for PER SLIDING SCALE Multivitamin (Multi Vitamin Daily) 1 Each Tablet 1 TAB PO DAILY for 30 Days, #30 TAB 0 Refills Rosuvastatin Calcium (Rosuvastatin Calcium) 40 Mg Tablet 1 TAB PO HS for 30 Days, #30 TAB (This prescription has been renewed) Skin Cleanser Combination No.8 (Zanfel) 30 Gm Cleanser 5 ML TOP PRN PRN for itching, #30 GM Discontinued Medications: Aspirin (Aspirin EC) 81 Mg Tablet.dr 1 TAB PO DAILY for 30 Days, #30 TAB Lisinopril (Lisinopril) 10 Mg Tablet 1 TAB PO DAILY for 30 Days, #30 TAB Metoprolol Tartrate (Lopressor) Unknown Strength Tablet Unknown Dose PO ONCE for 30 Days, #60 TAB 0 Refills Ticagrelor (Brilinta) 90 Mg Tablet 1 TAB PO BID Discharge Summary: As above *Problems/Diagnosis: (1) DKA (diabetic ketoacidosis) Total Time Spent on D/C: > 30 Minutes Date of Service: Aug 12, 2025 Billing Provider: BRITTON MORALES MD,[facility] Aug 12, 2025 07:48
== END 2025-08-10 14:28 | disposition home or self-care (01) | DRG 420 ==
LOC: ER 10:24 → ED HOLD 13:13 → EDBEDREQ 16:20 → PCU 3S 17:00
PROVIDERS: ADMIT Family Medicine; ATTEND Internal Medicine
DX: E10.10 Type 1 diabetes mellitus with ketoacidosis without coma (principal); I13.0 Hypertensive heart and chronic kidney disease with heart failure and stage 1 through stage 4 chronic kidney disease, or unspecified chronic kidney disease; E87.1 Hypo-osmolality and hyponatremia; E10.22 Type 1 diabetes mellitus with diabetic chronic kidney disease; N17.9 Acute kidney failure, unspecified; D64.9 Anemia, unspecified; F10.21 Alcohol dependence, in remission; N18.9 Chronic kidney disease, unspecified; I25.10 Atherosclerotic heart disease of native coronary artery without angina pectoris; G89.4 Chronic pain syndrome; K52.9 Noninfective gastroenteritis and colitis, unspecified; E86.1 Hypovolemia; E78.5 Hyperlipidemia, unspecified; Z79.82 Long term (current) use of aspirin; Z79.4 Long term (current) use of insulin; Z79.899 Other long term (current) drug therapy; Z95.5 Presence of coronary angioplasty implant and graft; Z95.1 Presence of aortocoronary bypass graft; Z91.199 Patient's noncompliance with other medical treatment and regimen due to unspecified reason; I25.2 Old myocardial infarction
CPT/HCPCS: 36415; 36600; 71045; 80053; 80061; 80305; 80320; 81001; 82010; 82150; 82550; 82607; 82728; 82746; 82800; 82803; 82948; 83036; 83540; 83550; 83605; 83690; 83735; 83880; 84100; 84132; 84145; 84466; 84484; 85018; 85025; 85610; 85730; 87040; 93005; 96361; 96374; 99285; G0378; J1644; J1650; J1815; J2270; J2405; J2765; J3411; J3480; J3490; J7030; J7040; J7070; J7120